=== PATIENT | female | born 1985 | race Hispanic/Latino ===

== ENCOUNTER 2017-07-19 15:25 | Emergency (ER) | payer SELFPAY | END 2017-07-19 15:43 | disposition home or self-care (01) | LOC: EDH 15:25 | DX: F41.1 Generalized anxiety disorder (principal); Z79.899 Other long term (current) drug therapy ==

== ENCOUNTER 2018-02-21 00:12 | Emergency (ER) | payer OTHER ==
[2018-02-21] MEDS ORDERED: ACETAMINOPHEN 325 MG TAB ONE (00:37)
== END 2018-02-21 00:59 | disposition home or self-care (01) ==
LOC: EDH 00:12
DX: S80.02XA Contusion of left knee, initial encounter (principal); S90.31XA Contusion of right foot, initial encounter; W18.39XA Other fall on same level, initial encounter; Y93.02 Activity, running; Y92.89 Other specified places as the place of occurrence of the external cause; Y99.8 Other external cause status
CPT/HCPCS: 73562; 73630

== ENCOUNTER 2018-02-22 00:45 | Emergency (ER) | payer OTHER ==
[2018-02-22] MEDS ORDERED: PHENYTOIN SODIUM 100 MG ERCAP PO ONE ×2 (01:33→01:53)
[2018-02-22] MEDS ORDERED: FOSPHENYTOIN SODIUM 500 MG/10ML VIAL IJ ONE (01:34)
[2018-02-22] MEDS ORDERED: SODIUM CHLORIDE 0.9% 50 ML IV ONE (02:03)
== END 2018-02-22 02:35 | disposition home or self-care (01) ==
LOC: EDH 00:45
DX: R56.9 Unspecified convulsions (principal); F41.9 Anxiety disorder, unspecified; Z72.0 Tobacco use
CPT/HCPCS: 36415; 80185; 96365; 99284; Q2009

== ENCOUNTER 2018-07-10 05:20 | Emergency (ER) | payer OTHER ==
[2018-07-10] MEDS ORDERED: KETOROLAC TROMETHAMINE 60 MG/2 ML VIAL ONE (06:05)
== END 2018-07-10 06:55 | disposition home or self-care (01) ==
LOC: EDH 05:20
DX: G89.29 Other chronic pain (principal); M25.562 Pain in left knee; Z76.5 Malingerer [conscious simulation]; F41.9 Anxiety disorder, unspecified; Z72.0 Tobacco use
CPT/HCPCS: 73562; 81025; 96372; 99284; J1885

== ENCOUNTER 2018-07-22 00:44 | Emergency (ER) | payer OTHER ==
[2018-07-22 01:16] LABS: BILIRUBIN,URINE Negative (NEGATIVE); GLUCOSE, URINE (UA) Negative (NEGATIVE); HCG,QUAL RESULT NEGATIVE (NEGATIVE); KETONES,URINE Trace mg/dL (NEGATIVE); LEUKOCYTE ESTERASE ,URINE Negative (NEGATIVE); NITRATE,URINE Negative (NEGATIVE); OCCULT BLOOD,URINE Moderate (NEGATIVE); PH,URINE 5.5 (5.0-8.0); PROTEIN,URINE Trace (NEGATIVE)
[2018-07-22 01:17] LABS: APPEARANCE,URINE SLIGHTLY CLOUDY (CLEAR); COLOR,URINE YELLOW (YELLOW)
[2018-07-22 01:20] LABS: BASOPHILS % (AUTO) 0.5 % (0.0-5.0); EOSINOPHILS % (AUTO) 0.2 % (0.0-8.0); HEMATOCRIT 34.1 % (36-48); LYMPHOCYTES % (AUTO) 21.7 % (21.0-51.0); MEAN CORPUSCULAR HEMOGLOBIN 30.4 pg (27.0-33.0); MEAN CORPUSCULAR HGB CONC 33.7 g/dL (32.0-36.0); MEAN CORPUSCULAR VOLUME 90.2 fL (79-99); MONOCYTES % (AUTO) 8.6 % (3.0-13.0); NUCLEATED RED BLOOD CELLS 0.1 % (0.0-0.19); PLATELET COUNT (AUTO) 355 K/uL (130-400); RED BLOOD CELL COUNT(AUTO) 3.78 MIL/uL (4.00-5.50); RED CELL DISTRIBUTION WIDTH 14.7 % (11.0-15.5)
[2018-07-22 01:21] LABS: AMPHET/METH SCREEN,URINE NEGATIVE (NEGATIVE); BARBITURATE SCREEN, URINE NEGATIVE (NEGATIVE); BENZODIAZEPINES SCREEN,URINE POSITIVE (NEGATIVE); CANNABINOID SCREEN,URINE NEGATIVE (NEGATIVE); COCAINE SCREEN,URINE POSITIVE (NEGATIVE); OPIATE SCREEN,URINE NEGATIVE (NEGATIVE); PHENCYCLIDINE SCREEN,URINE NEGATIVE (NEGATIVE)
[2018-07-22 01:29] LABS: BACTERIA,URINE Moderate /HPF (None Seen)
[2018-07-22] MEDS ORDERED: HYDRALAZINE HCL 25 MG TABLET ONE (01:29)
[2018-07-22 01:30] LABS: MUCUS,URINE Moderate LPF (None Seen)
[2018-07-22] MEDS ORDERED: ACETAMINOPHEN 325 MG TAB ONE (01:30)
[2018-07-22 01:50] LABS: CARBON DIOXIDE 29 mmol/L (21-32); CHLORIDE 102 mmol/L (101-111); CREATININE 0.8 mg/dL (0.5-1.5); GLOMERULAR FILTR. RATE CALC 90 mL/min (>60); GLUCOSE,RANDOM 106 mg/dL (70-105); POTASSIUM 3.1 mmol/L (3.5-5.1); SODIUM SERUM 140 mmol/L (136-145); UREA NITROGEN, BLOOD 10 mg/dL (7-18)
[2018-07-22 01:55] LABS: ALANINE AMINOTRANSFERASE 44 U/L (12-78); ALBUMIN 3.9 g/dL (3.5-5.0); ASPARTATE AMINOTRANSFERASE 109 U/L (10-37); BILIRUBIN,DIRECT 0.1 mg/dL (0.0-0.3); BILIRUBIN,TOTAL 0.4 mg/dL (0.2-1.0); TOTAL PROTEIN, SERUM 7.6 g/dL (6.0-8.3)
[2018-07-22 01:58] LABS: ACETAMINOPHEN < 1 mcg/mL (10-30); SALICYLATE < 2.8 mg/dL (2.8-20.0)
[2018-07-22] MEDS ORDERED: POTASSIUM CHLORIDE 20 MEQ ERTAB PO ONE (02:07)
[2018-07-22] MEDS ORDERED: DiphenhydrAMINE HCL 50 MG/ML VIAL ONE (04:15)
== END 2018-07-22 04:31 | disposition home or self-care (01) ==
LOC: EDH 00:44
DX: F19.10 Other psychoactive substance abuse, uncomplicated (principal); F41.9 Anxiety disorder, unspecified; R45.851 Suicidal ideations; M25.562 Pain in left knee
CPT/HCPCS: 36415; 70480; 73562; 80048; 80076; 80185; 80305; 81001; 81025; 85025; 96372; 99284; G0480 ×2; G0481; J1200